=== PATIENT | female | born 1965 | race Caucasian/White ===

== ENCOUNTER 2018-01-13 05:58 | Emergency (ER) | END 2018-01-13 08:22 | disposition home or self-care (01) ==

== ENCOUNTER 2018-07-07 06:00 | Emergency (ER) | payer OTHER ==
[~2018-07-07] VITALS: Ht 152.4 cm; Wt 84.2 kg
[~2018-07-07 06:00] MED LIST: ACET500T98 PO; D-ME118S24 PO; IBUP-1542 PO
[2018-07-07 06:02] VITALS: Ht 152.4 cm; Wt 84.2 kg
[2018-07-07] MEDS ORDERED: KETOROLAC 30 MG INJ IM STA (06:52)
[2018-07-07] MEDS ORDERED: FAMOTIDINE 20 MG TAB PO ONE (07:00)
[2018-07-07] MEDS ORDERED: HYDROCODONE/APAP (5/325) TAB PO ONE (07:00)
--- NOTE | 2018-07-07 07:05 | ERD ---
ER Documentation Chief Complaint Chief Complaint L knee pain x 2weeks, worst today; denies trauma HPI Patient is a 53 years old female presenting to the clinic with 2 months history of left knee pain. Reports that she was given some sort of medication by her primary care provider to resolve the pain, however, patient states that pain has gotten worse as of now and is not improving with [id number] medications. Patient denies any trauma or injury associated with the pain. 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 Patient states that the pain gets worse when she walks and rates it a 10 out of 10. Patient is also complaining of limited range of motion specifically flexion. She states is the pain has gotten better way of doing everyday tasks. Patient denies any fever or swelling of the left knee. Patient denies past medical history and cannot recall what medication she was given by her PCP. ROS All systems reviewed and are negative except as per history of present illness. Medications Home Meds Active Scripts Meloxicam* (Meloxicam*) 7.5 Mg Tablet, 7.5 MG PO DAILY, #30 TAB Prov:TOYIN LAL PA-C 07/07/18 D-Methorphan Hb/P-Epd HCl/Bpm (Kdwrbagpqu-Guyoitatmkx-Kf Syr) 118 Ml Syrup, 5 ML PO Q4H PRN for COUGH for 10 Days, #1 BOTTLE Prov:CLARI SOTELO DO 01/13/18 Ibuprofen* (Motrin*) 600 Mg Tab, 600 MG PO Q6H PRN for FEVER GREATER THAN 100.6, #30 TAB Prov:CLARI SOTELO DO 01/13/18 Acetaminophen (Tylenol) 500 Mg Tab, 500 MG PO Q6 PRN for FEVER GREATER THAN 100.6, #30 TAB Prov:CLARI SOTELO DO 01/13/18 Allergies Allergies: Coded Allergies: No Known Drug Allergies (Verified Allergy, Unknown, 01/13/18) PMhx/Soc Medical and Surgical Hx: pt denies Medical Hx, pt denies Surgical Hx History of Surgery: No Anesthesia Reaction: No Hx Neurological Disorder: No Hx Respiratory Disorders: No Hx Cardiac Disorders: No Hx Psychiatric Problems: No Hx Miscellaneous Medical Probl: No Hx Alcohol Use: No Hx Substance Use: No Hx Tobacco Use: No Smoking Status: Never smoker FmHx Patient denies family history Family History: No diabetes, No coronary disease, No other Physical Exam Vitals Vital Signs Date Temp Pulse Resp B/P (MAP) Pulse Ox O2 O2 Flow FiO2 Time Delivery Rate 07/07/18 98.9 80 20 157/79 97 06:02 (105) Physical Exam Const: No acute distress Head: Atraumatic Eyes: Normal Conjunctiva Resp: Clear to auscultation bilaterally Cardio: Regular rate and rhythm, no murmurs Skin: No petechiae or rashes Neur: Awake and alert Psych: Normal Mood and Affect. Left Knee Exam: Tenderness to palpation on anterior medial aspect with difficulty flexion due to pain. No crepitus,swelling, ecchymoses, or any obvious signs of trauma. Left and right knee have same mild warm to touch. Results 24 hrs Laboratory Tests Test 07/07/18 07:09 POC Beta HCG, Qualitative NEGATIVE Current Medications Medications Dose Sig/Eliza Start Time Status Last (Trade) Ordered Route PRN Stop Time Admin Dose Reason Admin 1 tab ONCE ONCE 07/07/18 DC 07/07/18 Acetaminophen PO 07:00 07:09 / 07/07/18 07:01 Hydrocodone Bitart ([place] (5/325)) Ketorolac 30 mg ONCE STAT 07/07/18 DC Tromethamine IM 06:52 (Toradol) 07/07/18 06:55 Famotidine 20 mg ONCE ONCE 07/07/18 DC 07/07/18 (Pepcid) PO 07:00 07:09 07/07/18 07:01 Procedures/MDM Patient exhibits early signs of arthritis of left knee is worsening due to physical activity. No further lab work and imaging required as patient is stable. [place] Path PO, Pepcid PO, and Toradol IM was given in ER with resolution of symptoms. Patient will be discharged with meloxicam and was informed to follow-up with her PCP for further evaluation. Patient will be given restriction work. Patient is allowed to rest for left knee pain occurs while she is working. Patient is also tries to avoid long hours of standing. Patient is allowed to take breaks after 2 hours of work. Restrictions are placed for 1 week. Patient has a follow-up with her primary care provider on the 07/12/2018 is scheduled for a left knee x-ray. Patient reports pain has resolved after administration of pain medication and has regained full range of motion. Patient says she is able to walk, however, she will be going home in a car via family member. Departure Diagnosis: Primary Impression: Knee pain Chronicity: acute Laterality: left Qualified Codes: M25.562 - Pain in left knee Additional Impression: Osteoarthritis Condition: Stable [facility] Additional Instructions: Paciente aconseja volver a Departamento de urgencias inmediatamente para sntomas nuevos o que empeoran . Paciente aconseja posteriores con el PCP en 2-3 kay . Paciente verbaliza la comprehensin y est de acuerdo con el tratamiento y el curso de accin. Si el paciente no tiene ninguna de atencin primaria pueden seguir con [facility] [id number] [place] [address] [facility] + [address] [address] TOYIN LAL PA-C July 07, 2018 07:05
[2018-07-07] MEDS ORDERED: MELO7.5T38 PO (07:11)
== END 2018-07-07 07:55 | disposition home or self-care (01) ==
LOC: FTE 06:00
DX: M17.12 Unilateral primary osteoarthritis, left knee (principal)
CPT/HCPCS: 81025; 96372; J1885; Z7502; Z7610